=== PATIENT | female | born 1985 | race Two or more races ===

== ENCOUNTER 2019-09-22 06:14 | Day surgery (SDC) | payer OTHER ==
[2019-09-22] MEDS ORDERED: PERCOCET 5-3251 EACH PO (11:35)
[2019-09-22] MEDS ORDERED: POLY119PG PO (11:35)
[2019-09-22] MEDS ORDERED: SURFAK240 M1 PO (11:36)
== END 2019-09-22 15:50 | disposition home or self-care (01) ==
LOC: CIR.AMB 06:14
DX: K80.10 Calculus of gallbladder with chronic cholecystitis without obstruction (principal); K42.9 Umbilical hernia without obstruction or gangrene; K43.9 Ventral hernia without obstruction or gangrene